=== PATIENT | male | born 1930 | race Caucasian/White ===

== ENCOUNTER 2017-12-14 12:43 | Emergency (ER) | payer OTHER ==
[~2017-12-14] VITALS: Ht 180.3 cm; Wt 64.9 kg
[2017-12-14] MEDS ORDERED: [UNRECOGNIZED DRUG - REMARK] PO (13:17)
[2017-12-14] MEDS ORDERED: B-COMPLEX TABL0.4 MG PO (13:17)
[2017-12-14] MEDS ORDERED: GABAPENTIN 100100 MG PO (13:18)
[2017-12-14] MEDS ORDERED: VITAMIN D3400 UNIT PO (13:18)
[2017-12-14] MEDS ORDERED: [UNRECOGNIZED DRUG - OTHER] PO (13:18)
[2017-12-14] MEDS ORDERED: ASPIR 8181 MG PO (13:18)
[2017-12-14 13:41] LABS: URINE BILIRUBIN NEGATIVE (Negative); URINE BLOOD 3+ (Negative); URINE CLARITY CLEAR; URINE COLOR YELLOW; URINE GLUCOSE-RANDOM* NEGATIVE (Negative); URINE KETONES NEGATIVE (Negative); URINE LEUKOCYTES NEGATIVE (Negative); URINE NITRITE NEGATIVE (Negative); URINE PROTEIN (DIPSTICK) NEGATIVE (Negative); URINE UROBILINOGEN 0.2 E.U./dl (0.2-1.0)
[2017-12-14 13:57] LABS: BACTERIA 1-9 Few /HPF (None Seen); CASTS None Seen /LPF (None Seen); CRYSTALS None Seen /LPF (None Seen); SQUAMOUS None Seen /LPF (0-3); URINE RBC 3-10 Few /HPF (0-2); URINE WBC None Seen /HPF (0-5)
[2017-12-14] MEDS ORDERED: FLOMAX0.4 MG PO (14:10)
[2017-12-14 15:09] LABS: ABSOLUTE NEUTROPHILS 3.4 thou/uL (1.4-8.2); BASOPHILS 1.3 % (0.0-2.0); EOSINOPHILS 3.5 % (0.0-3.0); HEMATOCRIT 35.8 % (42.0-52.0); HEMOGLOBIN 12.2 gm/dL (14.0-18.0); LYMPHOCYTES 25.3 % (24.0-44.0); MCH 31.8 pg (26.0-34.0); MCHC 34.1 g/dL (28.0-37.0); MCV 93.3 fL (80.0-100.0); MONOCYTES 8.4 % (1.0-8.0); PLATELET COUNT 232 thou/uL (150-400); POLYS 61.5 % (36.0-66.0); RBC 3.84 mil/uL (4.50-6.00); RDW 14.1 % (10.5-14.5); WBC 5.5 thou/uL (4.0-11.0)
[2017-12-14 15:18] LABS: CALCIUM 8.8 mg/dL (8.5-10.1); CREATININE 0.9 mg/dL (0.7-1.3); POTASSIUM 3.7 mmol/L (3.5-5.1)
[2017-12-14] MEDS ORDERED: AMOXICILLIN 50500 M1 PO (15:42)
[2017-12-14 16:02] VITALS: BP 139/73
== END 2017-12-14 16:03 | disposition home or self-care (01) ==
LOC: ER 12:43
PROVIDERS: Emergency Medicine
DX: R31.29 Other microscopic hematuria (principal); R39.198 Other difficulties with micturition

== ENCOUNTER → 2018-07-07 | Outpatient (CLI) | payer OTHER ==
[~2018-07-07] MED LIST: ALPHA LIPOIC AC50 M1 PO; AMOXICILLIN 50500 M1 PO; ASPIR 8181 MG PO; B-COMPLEX TABL0.4 MG PO; COLACE100 MG PO; FLOMAX0.4 MG PO; GABAPENTIN 100100 MG PO; NORCO 5-325 TA1 EACH PO; VITAMIN D3400 UNIT PO; [UNRECOGNIZED DRUG - OTHER] PO; [UNRECOGNIZED DRUG - REMARK] PO
== END ==
LOC: CAT 14:07
DX: R90.82 White matter disease, unspecified (principal); R55 Syncope and collapse